=== PATIENT | male | born 1970 | race Caucasian/White ===

== ENCOUNTER 2017-01-30 11:52 | Emergency (ER) | payer OTHER ==
[~2017-01-30] VITALS: Ht 180.3 cm; Wt 108.9 kg
[~2017-01-30 11:52] MED LIST: ATIVAN; KLONOPIN1 MG PO; KLONOPIN2 MG PO; LIORESAL10 MG PO; MOTRIN; MOTRIN800 MG PO; NORCO; NORCO 10/325 MG1 TAB PO; OXYCONTIN40 MG PO; ROBAXIN500 M1 PO; VICODIN 5/500 M1 TAB PO; XANAX1 MG PO; ZANAFLEX CAPSULE2 MG PO
[2017-01-30 12:03] VITALS: BP 120/79
--- NOTE | 2017-01-30 12:07 | NUR ---
Patient ambulated to bed 07.
[2017-01-30] MEDS ORDERED: FLUORESCEIN OPTH STRIP 1 MG ONE (12:12)
--- NOTE | 2017-01-30 12:14 | NUR ---
Dr. Beauchamp evaluating patient at bedside.
--- NOTE | 2017-01-30 12:15 | NUR ---
46/M presents to ED for evaluation of right eye pain since last night. Pt states "I was plumbing and I got the nasty sewage water in my eye and I got a piece of rust in my eye. I got the rust out. I washed my eye in the shower really good." Patient still continues to c/o burning, "scratchy" feeling in the right eye and c/o blurry vision out of the right eye. Pt states "It doesn't hurt that bad right now." Pt reports a 5/10 pain. Patient has redness to eye, no drainage noted. Patient states "I just want to make sure it doesn't get infected." Patient is AOX4, ambulatory with steady gait. VSS. Pt is calm and relaxed, no visible signs of distress noted.
[2017-01-30] MEDS ORDERED: TETRACAINE 0.5% OPTH SOL 2 ML BTL ONE (12:20)
[2017-01-30] MEDS ORDERED: FLUORESCEIN OPTH STRIP 1 MG OP ONE (12:30)
[2017-01-30] MEDS ORDERED: TETRACAINE 0.5% OPTH SOL 2 ML BTL OP ONE (12:30)
--- NOTE | 2017-01-30 12:50 | NUR ---
Pt states "It feels a lot better now." Pt is able to open his eye now.
[2017-01-30 13:05] VITALS: BP 119/75
--- NOTE | 2017-01-30 13:05 | NUR ---
Patient discharged with v/s stable. Written and verbal after care instructions given and explained. Patient alert, oriented and verbalized understanding of instructions. Ambulatory with steady gait. All questions addressed prior to discharge. ID band removed. Patient advised to follow up with PMD. Rx of CIPRO HCL 3% OPTHAL. HORTENCIA.,TOBRAMYCIN DEXAMETHASONE OPTHAL.HORTENCIA. given. Patient educated on indication of medication including possible reaction and side effects. Opportunity to ask questions provided and answered.
--- NOTE | 2017-01-30 13:05 | NUR ---
Chart checked and completed. The patient's care was reviewed and supervised by Aftab Kidd RN.
--- NOTE | 2017-01-30 13:05 | NUR ---
PATIENT PROVIDED LIST OF EYE DOCTORS FOR FOLLOW UP WITH UNDERSTANDING
== END 2017-01-30 13:05 | disposition home or self-care (01) ==
LOC: MED 12:00
DX: S05.01XA Injury of conjunctiva and corneal abrasion without foreign body, right eye, initial encounter (principal); Z88.1 Allergy status to other antibiotic agents; Z88.0 Allergy status to penicillin; Y93.H9 Activity, other involving exterior property and land maintenance, building and construction; Y93.89 Activity, other specified; Y92.89 Other specified places as the place of occurrence of the external cause; Y99.8 Other external cause status

== ENCOUNTER 2018-12-14 12:05 | Emergency (ER) | payer OTHER ==
[~2018-12-14] VITALS: Ht 180.3 cm; Wt 109.8 kg
[~2018-12-14 12:05] MED LIST changes: +ACET-787 PO; +ALPR1TAB2 PO; -ATIVAN; +BACL10TA4 PO; +IBUP-974 PO; -KLONOPIN1 MG PO; -KLONOPIN2 MG PO; -LIORESAL10 MG PO; -MOTRIN; -MOTRIN800 MG PO; -NORCO; -NORCO 10/325 MG1 TAB PO; +OXYC40TE66 PO; -OXYCONTIN40 MG PO; -ROBAXIN500 M1 PO; -VICODIN 5/500 M1 TAB PO; -XANAX1 MG PO; -ZANAFLEX CAPSULE2 MG PO
[2018-12-14 12:16] VITALS: BP 150/90
--- NOTE | 2018-12-14 12:22 | NUR ---
patient to lobby with steady gait. awaiting available room. vss. nad
--- NOTE | 2018-12-14 12:53 | NUR ---
PT TO ER BED 2
--- NOTE | 2018-12-14 13:03 | NUR ---
bib self with c/o intermittient anxiety attacks x 2 days. Patient reports stress at home. Unable to fill his prescription to Xanax d/t holiday yesterday. Patient reports feeling anxious and shakiness. RR are even and unlabored. Patient denies any cp, sob, visual changes, or dizziness. hx--anxiety rx--Xanax
[2018-12-14] MEDS ORDERED: LORazepam 2 MG/ML VIAL IM ONE (13:45)
[2018-12-14 14:29] VITALS: BP 130/87
--- NOTE | 2018-12-14 14:29 | NUR ---
Patient discharged with v/s stable. Written and verbal after care instructions given and explained. Patient verbalized understanding. Ambulatory with steady gait. All questions addressed prior to discharge. Advised to follow up with PMD. LEFT WITHOUT DOCUMENT& PT DID NOT SIGN DC PAPER
== END 2018-12-14 14:29 | disposition home or self-care (01) ==
LOC: MED 12:05
DX: F41.9 Anxiety disorder, unspecified (principal); F17.200 Nicotine dependence, unspecified, uncomplicated; Z90.49 Acquired absence of other specified parts of digestive tract; Z88.0 Allergy status to penicillin; Z88.1 Allergy status to other antibiotic agents
CPT/HCPCS: 96372; 99284; J2060